=== PATIENT | female | born 1950 | race Caucasian/White ===

== ENCOUNTER → 2016-07-03 | Outpatient (CLI) | payer SELFPAY | LOC: SLEEP 21:30 → SLEEP-COR 21:30 | DX: G47.39 Other sleep apnea (principal) | CPT/HCPCS: 95811 ==

== ENCOUNTER → 2020-07-31 | Outpatient (CLI) | payer OTHER | LOC: KOH-I 15:06 | DX: M25.561 Pain in right knee (principal); M25.571 Pain in right ankle and joints of right foot; Z91.81 History of falling | CPT/HCPCS: 73721 ==

== ENCOUNTER 2021-08-17 17:34 | Emergency (ER) | payer OTHER ==
[2021-08-17 18:34] LABS: HEMOGLOBIN 14.3 gm/dl (12.3-15.3); RED BLOOD COUNT 4.56 M/UL (4.00-5.10); WHITE BLOOD COUNT 8.7 K/UL (4.5-11.0)
[2021-08-17 18:54] LABS: BUN/CREATININE RATIO 15 (0-10)
== END 2021-08-18 00:38 | disposition home or self-care (01) ==
LOC: ER1 17:34
PROVIDERS: Emergency Medicine
DX: S72.401A Unspecified fracture of lower end of right femur, initial encounter for closed fracture (principal); S93.401A Sprain of unspecified ligament of right ankle, initial encounter; M25.561 Pain in right knee; I10 Essential (primary) hypertension; Z86.73 Personal history of transient ischemic attack (TIA), and cerebral infarction without residual deficits; W01.0XXA Fall on same level from slipping, tripping and stumbling without subsequent striking against object, initial encounter; Y92.009 Unspecified place in unspecified non-institutional (private) residence as the place of occurrence of the external cause
CPT/HCPCS: 29530; 70450; 71045; 73562; 73610; 73630; 80053; 82550; 82553; 84484; 85025; 93005; 99284